=== PATIENT | female | born 1960 | race Two or more races ===

== ENCOUNTER 2016-11-02 13:27 | Emergency (ER) | payer MEDICAID, OTHER ==
[~2016-11-02] VITALS: Ht 152.4 cm; Wt 98.0 kg
[2016-11-02 15:48] VITALS: BP 145/91
== END 2016-11-02 16:14 | disposition home or self-care (01) ==
LOC: ER 13:47
DX: F20.9 Schizophrenia, unspecified (principal); F32.9 Major depressive disorder, single episode, unspecified; M19.90 Unspecified osteoarthritis, unspecified site; Z76.0 Encounter for issue of repeat prescription

== ENCOUNTER 2018-06-15 13:01 | Emergency (ER) | payer MEDICAID, OTHER ==
[~2018-06-15] VITALS: Ht 172.7 cm; Wt 96.3 kg
[2018-06-15 13:25] VITALS: BP 118/66
[2018-06-15] MEDS ORDERED: KETOROLAC TROMETH 60MG/2ML VIAL IM ONE (14:30)
== END 2018-06-15 15:22 | disposition home or self-care (01) ==
LOC: ER 13:07
DX: G89.29 Other chronic pain (principal); M54.5 Low back pain; H10.13 Acute atopic conjunctivitis, bilateral
CPT/HCPCS: 96372; 99283; J1885; J2791

== ENCOUNTER 2018-07-05 10:26 | Inpatient (IN) | payer OTHER ==
[~2018-07-05] VITALS: Ht 152.4 cm; Wt 97.6 kg
[2018-07-05 11:06] LABS: Urine Bacteria FEW /hpf (None Seen); Urine Blood Negative /uL (Negative); Urine Hyaline Cast FEW /lpf (0 - 2); Urine Mucus FEW (None Seen); Urine Specific Gravity 1.025 (1.001-1.035); Urine WBC 89 /hpf (0 - 5)
[2018-07-05] MEDS ORDERED: PANTOPRAZOLE 40 MG/10 ML VIAL IV ONE ×2 (11:15→13:15)
[2018-07-05 11:25] LABS: Basophils # (auto) 0.1 uL; Basophils % (auto) 0.7 % (0.0-2.0); Eosinophils # (auto) 0.3 uL; Eosinophils % (auto) 3.7 % (0.0-7.0); Hematocrit 41.3 % (36.0-46.0); Lymphocytes # (auto) 2.6 uL; Mean Corpuscular Hgb Conc. 33.9 g/dL (32.0-36.0); Mean Corpuscular Volume 88.7 fL (80.0-100.0); Monocytes # (auto) 0.5 uL; Monocytes % (auto) 6.8 % (0.0-12.0); Neutrophils # (auto) 4.3 uL; Neutrophils % (auto) 54.8 % (37.0-80.0); Nucleated Red Blood Cells % 0.1 %; Platelet Count (auto) 393 10^3/uL (140-450); Red Blood Cells 4.66 10^6/uL (4.0-5.20); Red Cell Distribution Width 14.3 % (11.8-14.3); White Blood Cell 7.8 10^3/uL (4.4-10.8)
[2018-07-05 11:42] LABS: Albumin 3.9 g/dL (3.4-5.0); BUN/Creatinine Ratio 17.6; Bilirubin, Total 0.2 mg/dL (0.2-1.0); Calcium 9.3 mg/dL (8.5-10.1); Potassium 3.7 mmol/L (3.5-5.1); Total Protein 8.5 g/dL (6.4-8.2)
[2018-07-05] MEDS ORDERED: SODIUM CHLORIDE 0.9% 1,000 ML IV ONE (12:44)
[2018-07-05] MEDS ORDERED: ONDANSETRON HCL 4 MG/2 ML VIAL IV ONE (12:45)
[2018-07-05] MEDS ORDERED: PIPERACILLIN-TAZOB 3.375GM 100 ML IV ONE (12:45)
[2018-07-05] MEDS ORDERED: MORPHINE SULFATE 4 MG/ML SYR/VIAL IV ONE (12:45)
[2018-07-05] MEDS ORDERED: MORPHINE SULF INJ 2 MG/ML SYRINGE 1ML IV PRN (13:15)
[2018-07-05] MEDS ORDERED: NITROGLYCERIN 0.4 MG SL TAB SL PRN (13:15)
[2018-07-05] MEDS ORDERED: PROMETHAZINE HCL 25 MG/ML 1ML IV PRN (13:15)
[2018-07-05] MEDS ORDERED: ACETAMINOPHEN 500 MG TAB PO PRN (13:15)
[2018-07-05] MEDS ORDERED: cefTRIAXone 1GM/10ml IVPUSH 10 ML IV ONE (13:15)
[2018-07-05] MEDS: SODIUM CHLORIDE 0.9% 1,000 ML IV SCH ×2 (13:23→21:10)
[2018-07-05 14:29] LABS: Amylase 52 U/L (25-115); Lipase 145 U/L (73-393)
[2018-07-05 14:36] LABS: INR 1.05 (0.9-1.15); Partial Thromboplastin Time 28.7 sec (23.78-33.04); Prothrombin Time 11.2 sec (9.27-12.13)
[2018-07-05] MEDS: metroNIDAZOLE 500MG/100ML 100 ML IV SCH (18:09)
[2018-07-05 18:19] LABS: Hematocrit 36.9 % (36.0-46.0); Hemoglobin 12.3 g/dL (12.2-16.2)
[2018-07-05] MEDS: MORPHINE SULFATE 4 MG/ML SYR/VIAL IV PRN (21:09)
[2018-07-05] MEDS: HYDROcodone-ACET 5/325MG TAB PO PRN (22:17)
[2018-07-05] MEDS: LORazepam 0.5 MG TAB PO PRN (22:17)
[2018-07-05] MEDS: TEMAZEPAM 15 MG CAP PO PRN (22:18)
[2018-07-05 23:11] VITALS: BP 111/47
[2018-07-06 00:56] LABS: Hematocrit 34.7 % (36.0-46.0); Hemoglobin 11.6 g/dL (12.2-16.2)
[2018-07-06] MEDS: metroNIDAZOLE 500MG/100ML 100 ML IV SCH ×4 (01:04→18:38)
[2018-07-06] MEDS: SODIUM CHLORIDE 0.9% 1,000 ML IV SCH ×3 (05:03→21:30)
[2018-07-06 05:44] VITALS: BP 110/67
[2018-07-06] MEDS: HYDROcodone-ACET 5/325MG TAB PO PRN (05:48)
[2018-07-06 07:01] LABS: Basophils # (auto) 0 uL; Basophils % (auto) 0.5 % (0.0-2.0); Eosinophils # (auto) 0.4 uL; Eosinophils % (auto) 4.6 % (0.0-7.0); Hematocrit 34.6 % (36.0-46.0); Hemoglobin 11.7 g/dL (12.2-16.2); Lymphocytes % (auto) 24.5 % (10.0-50.0); Mean Corpuscular Hemoglobin 30.2 pg (28.0-32.0); Mean Corpuscular Hgb Conc. 33.7 g/dL (32.0-36.0); Mean Corpuscular Volume 89.6 fL (80.0-100.0); Monocytes # (auto) 0.6 uL; Monocytes % (auto) 7.5 % (0.0-12.0); Neutrophils # (auto) 5.1 uL; Neutrophils % (auto) 62.9 % (37.0-80.0); Nucleated Red Blood Cells % 0.1 %; Platelet Count (auto) 309 10^3/uL (140-450); Red Blood Cells 3.86 10^6/uL (4.0-5.20); Red Cell Distribution Width 14.3 % (11.8-14.3)
[2018-07-06 09:00] VITALS: BP 118/51
[2018-07-06] MEDS: PANTOPRAZOLE 40 MG TAB PO SCH (10:15)
[2018-07-06] MEDS: cefTRIAXone 1GM/10ml IVPUSH 10 ML IV SCH (10:15)
[2018-07-06 13:00] VITALS: BP 107/54
[2018-07-06] MEDS: MORPHINE SULFATE 4 MG/ML SYR/VIAL IV PRN ×2 (13:40→20:45)
[2018-07-06 17:00] VITALS: BP 122/59
[2018-07-06 22:00] VITALS: BP 113/50
[2018-07-06] MEDS: TEMAZEPAM 15 MG CAP PO PRN (23:36)
[2018-07-07] MEDS: HYDROcodone-ACET 5/325MG TAB PO PRN (01:13)
[2018-07-07 05:00] VITALS: BP 156/104
[2018-07-07 05:54] VITALS: BP 107/52
[2018-07-07 08:29] VITALS: BP 150/85
[2018-07-07] MEDS: metroNIDAZOLE 500MG/100ML 100 ML IV SCH ×4 (08:55→18:06)
[2018-07-07] MEDS: SODIUM CHLORIDE 0.9% 1,000 ML IV SCH ×2 (08:56→15:26)
[2018-07-07] MEDS: cefTRIAXone 1GM/10ml IVPUSH 10 ML IV SCH (09:19)
[2018-07-07] MEDS: PANTOPRAZOLE 40 MG TAB PO SCH (09:20)
[2018-07-07] MEDS: MORPHINE SULFATE 4 MG/ML SYR/VIAL IV PRN ×2 (09:20→18:07)
[2018-07-07 10:13] LABS: Basophils # (auto) 0 uL; Basophils % (auto) 0.3 % (0.0-2.0); Eosinophils # (auto) 0.3 uL; Eosinophils % (auto) 3.2 % (0.0-7.0); Hematocrit 33.2 % (36.0-46.0); Lymphocytes # (auto) 1.9 uL; Lymphocytes % (auto) 22.7 % (10.0-50.0); Mean Corpuscular Hemoglobin 29.4 pg (28.0-32.0); Mean Corpuscular Volume 89.2 fL (80.0-100.0); Monocytes # (auto) 0.7 uL; Neutrophils # (auto) 5.4 uL; Neutrophils % (auto) 65.8 % (37.0-80.0); Nucleated Red Blood Cells % 0.1 %; Platelet Count (auto) 299 10^3/uL (140-450); Red Blood Cells 3.73 10^6/uL (4.0-5.20); Red Cell Distribution Width 14.1 % (11.8-14.3); White Blood Cell 8.2 10^3/uL (4.4-10.8)
[2018-07-07 10:20] LABS: BUN/Creatinine Ratio 9.2; Calcium 8.7 mg/dL (8.5-10.1); Magnesium 1.9 mg/dL (1.6-2.6); Potassium 3.7 mmol/L (3.5-5.1)
[2018-07-07 12:30] VITALS: BP 139/68
[2018-07-07] MEDS ORDERED: MAGNESIUM SULFATE 1GM/100ML 100 ML IV ONE (14:30)
[2018-07-07 16:18] VITALS: BP 127/61
[2018-07-07 21:58] VITALS: BP 119/58
[2018-07-08] MEDS: MORPHINE SULFATE 4 MG/ML SYR/VIAL IV PRN ×2 (00:39→06:47)
[2018-07-08] MEDS: metroNIDAZOLE 500MG/100ML 100 ML IV SCH ×4 (01:00→17:32)
[2018-07-08 06:05] VITALS: BP 121/64
[2018-07-08 06:06] VITALS: BP 128/75
[2018-07-08] MEDS: SODIUM CHLORIDE 0.9% 1,000 ML IV SCH ×2 (07:10→11:31)
[2018-07-08 07:39] LABS: Basophils # (auto) 0 uL; Basophils % (auto) 0.3 % (0.0-2.0); Eosinophils # (auto) 0.2 uL; Eosinophils % (auto) 2.8 % (0.0-7.0); Hematocrit 33.3 % (36.0-46.0); Hemoglobin 11.1 g/dL (12.2-16.2); Lymphocytes # (auto) 1.7 uL; Mean Corpuscular Hemoglobin 29.9 pg (28.0-32.0); Mean Corpuscular Hgb Conc. 33.5 g/dL (32.0-36.0); Mean Corpuscular Volume 89.3 fL (80.0-100.0); Monocytes # (auto) 0.6 uL; Monocytes % (auto) 8.3 % (0.0-12.0); Neutrophils # (auto) 4.7 uL; Neutrophils % (auto) 64.6 % (37.0-80.0); Nucleated Red Blood Cells % 0.1 %; Platelet Count (auto) 305 10^3/uL (140-450); Red Blood Cells 3.73 10^6/uL (4.0-5.20); Red Cell Distribution Width 13.9 % (11.8-14.3); White Blood Cell 7.3 10^3/uL (4.4-10.8)
[2018-07-08 08:30] VITALS: BP 148/71
[2018-07-08] MEDS: cefTRIAXone 1GM/10ml IVPUSH 10 ML IV SCH (09:01)
[2018-07-08] MEDS: PANTOPRAZOLE 40 MG TAB PO SCH (10:36)
[2018-07-08 12:59] VITALS: BP 145/58
[2018-07-08 16:54] VITALS: BP 140/72
[2018-07-08] MEDS: HYDROcodone-ACET 5/325MG TAB PO PRN (20:28)
[2018-07-08 22:00] VITALS: BP 122/58
[2018-07-08] MEDS: LORazepam 0.5 MG TAB PO PRN (22:20)
[2018-07-09 05:00] VITALS: BP 126/75
[2018-07-09] MEDS: metroNIDAZOLE 500MG/100ML 100 ML IV SCH ×3 (06:14→12:13)
[2018-07-09 08:44] VITALS: BP 132/68
[2018-07-09] MEDS: cefTRIAXone 1GM/10ml IVPUSH 10 ML IV SCH (08:58)
[2018-07-09] MEDS: HYDROcodone-ACET 5/325MG TAB PO PRN (09:13)
[2018-07-09 09:47] LABS: Hematocrit 38.2 % (36.0-46.0); Hemoglobin 12.7 g/dL (12.2-16.2)
[2018-07-09] MEDS: PANTOPRAZOLE 40 MG TAB PO SCH (10:00)
[2018-07-09 10:01] LABS: Magnesium 1.7 mg/dL (1.6-2.6); Potassium 3.5 mmol/L (3.5-5.1)
[2018-07-09] MEDS ORDERED: LEVO500T21 PO (11:45)
[2018-07-09] MEDS ORDERED: METR500T PO (11:45)
[2018-07-09] MEDS ORDERED: MAGNESIUM SULFATE 1GM/100ML 100 ML IV ONE (11:45)
[2018-07-09 13:00] VITALS: BP 136/72
[2018-07-09 14:56] VITALS: BP 144/61
[2018-07-09 17:00] VITALS: BP 117/57
== END 2018-07-09 17:38 | disposition home health service (06) | DRG 244 ==
LOC: ER 10:31 → TELE 10:32 → TELE-EAST 21:13
PROVIDERS: ADMIT Internal Medicine; ATTEND Internal Medicine
DX: K57.33 Diverticulitis of large intestine without perforation or abscess with bleeding (principal); N17.0 Acute kidney failure with tubular necrosis; E66.01 Morbid (severe) obesity due to excess calories; F17.210 Nicotine dependence, cigarettes, uncomplicated; N39.0 Urinary tract infection, site not specified; K27.9 Peptic ulcer, site unspecified, unspecified as acute or chronic, without hemorrhage or perforation; G62.9 Polyneuropathy, unspecified; G89.4 Chronic pain syndrome; I70.8 Atherosclerosis of other arteries; Z83.3 Family history of diabetes mellitus; Z87.11 Personal history of peptic ulcer disease; Z90.721 Acquired absence of ovaries, unilateral; Z68.41 Body mass index [BMI] 40.0-44.9, adult; Z90.49 Acquired absence of other specified parts of digestive tract
CPT/HCPCS: 36415; 74176; 80048; 80053; 81001; 82150; 82270; 82378; 83605; 83690; 83735; 84132; 85014; 85018; 85025; 85045; 85610; 85652; 85730; 87040; 87081; 87086; 87493; 96361; 96365; 96375; A6257; C9113; J0696; J2405; J2543; J3490

== ENCOUNTER 2018-09-17 09:09 | Emergency (ER) | payer OTHER ==
[~2018-09-17] VITALS: Ht 152.4 cm; Wt 95.3 kg
[~2018-09-17 09:09] MED LIST: LEVO500T21 PO; METR500T PO
[2018-09-17] MEDS ORDERED: IPRATROPIUM BROM 0.5 MG/2.5ML INH SOL NEB ONE (09:45)
[2018-09-17] MEDS ORDERED: ALBUTEROL SULF 2.5 MG/0.5ML(0.5%) NEB SOLN NEB ONE (09:45)
[2018-09-17 09:53] LABS: Urine Bacteria NONE SEEN /hpf (None Seen); Urine Blood Negative /uL (Negative); Urine Specific Gravity 1.014 (1.001-1.035); Urine WBC 21 /hpf (0 - 5)
[2018-09-17] MEDS: methylPREDNISolone SOD SUCC 125 MG/2 ML VL IV ONE ×2 (09:53→09:56)
[2018-09-17 10:30] LABS: Basophils # (auto) 0 uL; Basophils % (auto) 0.6 % (0.0-2.0); Eosinophils # (auto) 0.3 uL; Eosinophils % (auto) 4.4 % (0.0-7.0); Hematocrit 41.8 % (36.0-46.0); Lymphocytes # (auto) 1.3 uL; Lymphocytes % (auto) 17.4 % (10.0-50.0); Mean Corpuscular Hemoglobin 29.9 pg (28.0-32.0); Mean Corpuscular Hgb Conc. 33.4 g/dL (32.0-36.0); Mean Corpuscular Volume 89.5 fL (80.0-100.0); Monocytes # (auto) 0.6 uL; Monocytes % (auto) 7.9 % (0.0-12.0); Neutrophils # (auto) 5.3 uL; Neutrophils % (auto) 69.7 % (37.0-80.0); Platelet Count (auto) 373 10^3/uL (140-450); Red Blood Cells 4.67 10^6/uL (4.0-5.20); Red Cell Distribution Width 14.2 % (11.8-14.3); White Blood Cell 7.6 10^3/uL (4.4-10.8)
[2018-09-17 10:40] LABS: Chloride 104 mmol/L (98-107); Potassium 3.8 mmol/L (3.5-5.1); Sodium 139 mmol/L (136-145)
[2018-09-17 10:50] LABS: Alanine Aminotransferase 33 U/L (13-56); Albumin 3.9 g/dL (3.4-5.0); Alkaline Phosphatase 69 U/L (45-117); Anion Gap 6 (5-15); Aspartate Aminotransferase 19 U/L (15-37); BUN/Creatinine Ratio 13.1; Bilirubin, Total 0.3 mg/dL (0.2-1.0); Blood Urea Nitrogen 11 mg/dL (7-18); Calcium 9.1 mg/dL (8.5-10.1); Carbon Dioxide 29 mmol/L (21-32); GFR African American 89 mL/min; GFR Non-African American 74 mL/min; Glucose 125 mg/dL (74-106)
[2018-09-17 11:46] LABS: INR 1.04 (0.9-1.15); Partial Thromboplastin Time 28.2 sec (23.78-33.04); Prothrombin Time 11.1 sec (9.27-12.13)
[2018-09-17 12:16] VITALS: BP 139/65
== END 2018-09-17 12:20 | disposition home or self-care (01) ==
LOC: ER 09:09
DX: J45.909 Unspecified asthma, uncomplicated (principal); N39.0 Urinary tract infection, site not specified; I10 Essential (primary) hypertension; M19.90 Unspecified osteoarthritis, unspecified site; G62.9 Polyneuropathy, unspecified; F17.210 Nicotine dependence, cigarettes, uncomplicated; Z90.89 Acquired absence of other organs
CPT/HCPCS: 36415; 71045; 80053; 81001; 83605; 83880; 84484; 85025; 85610; 85730; 94640; 96374; 99284; J2930; J7030; J7611; J7644

== ENCOUNTER 2019-01-04 17:24 | Inpatient (IN) | payer OTHER ==
[~2019-01-04] VITALS: Ht 152.4 cm; Wt 93.9 kg
[2019-01-04 18:25] LABS: Alanine Aminotransferase 46 U/L (13-56); Albumin 4.1 g/dL (3.4-5.0); Anion Gap 5 (5-15); Aspartate Aminotransferase 31 U/L (15-37); BUN/Creatinine Ratio 14.4; Blood Urea Nitrogen 17 mg/dL (7-18); Calcium 9.4 mg/dL (8.5-10.1); Carbon Dioxide 27 mmol/L (21-32); Chloride 102 mmol/L (98-107); GFR African American 60 mL/min; GFR Non-African American 50 mL/min; Glucose 143 mg/dL (74-106); Potassium 4.3 mmol/L (3.5-5.1); Sodium 134 mmol/L (136-145)
[2019-01-04 18:26] LABS: Amphetamine Screen, Urine NEGATIVE (NEGATIVE); Barbiturate Scree,Urine NEGATIVE (NEGATIVE); Benzodiazephine Screen, Urine NEGATIVE (NEGATIVE); Cannabinoid Screen, Urine NEGATIVE (NEGATIVE); Cocaine Screen, Urine NEGATIVE (NEGATIVE); Opiate Scree,Urine POSITIVE (NEGATIVE); Phencyclidine Screen, Urine NEGATIVE (NEGATIVE)
[2019-01-04 18:30] LABS: Alkaline Phosphatase 65 U/L (45-117); Bilirubin, Total 0.3 mg/dL (0.2-1.0); Total Protein 8.7 g/dL (6.4-8.2)
[2019-01-04 18:44] LABS: Urine Bacteria FEW /hpf (None Seen); Urine Blood Negative /uL (Negative); Urine Mucus FEW (None Seen); Urine Specific Gravity 1.024 (1.001-1.035); Urine WBC 15 /hpf (0 - 5)
[2019-01-04 18:48] LABS: Basophils # (auto) 0 uL; Basophils % (auto) 0.2 % (0.0-2.0); Eosinophils # (auto) 0 uL; Eosinophils % (auto) 0.3 % (0.0-7.0); Lymphocytes # (auto) 1.7 uL; Lymphocytes % (auto) 13.5 % (10.0-50.0); Mean Corpuscular Hemoglobin 29.6 pg (28.0-32.0); Mean Corpuscular Hgb Conc. 33.3 g/dL (32.0-36.0); Mean Corpuscular Volume 88.8 fL (80.0-100.0); Monocytes # (auto) 0.7 uL; Monocytes % (auto) 5.2 % (0.0-12.0); Neutrophils # (auto) 10.2 uL; Neutrophils % (auto) 80.8 % (37.0-80.0); Nucleated Red Blood Cells % 0.1 %; Platelet Count (auto) 395 10^3/uL (140-450); Red Cell Distribution Width 14.6 % (11.8-14.3); White Blood Cell 12.6 10^3/uL (4.4-10.8)
[2019-01-05] MEDS ORDERED: metroNIDAZOLE 500MG/100ML 100 ML IV ONE (01:00)
[2019-01-05] MEDS ORDERED: SODIUM CHLORIDE 0.9% 1,000 ML IV ONE (01:00)
[2019-01-05] MEDS ORDERED: cefTRIAXone 1GM/50ML D5W 50 ML IV ONE (01:00)
[2019-01-05] MEDS ORDERED: MORPHINE SULFATE 4 MG/ML SYR/VIAL IV ONE (01:00)
[2019-01-05] MEDS ORDERED: MORPHINE SULF INJ 2 MG/ML SYRINGE 1ML IV ONE (04:00)
[2019-01-05] MEDS ORDERED: HYDROcodone-ACET 5/325MG TAB PO PRN (05:00)
[2019-01-05] MEDS ORDERED: ONDANSETRON HCL 4 MG/2 ML VIAL IV PRN (05:00)
[2019-01-05] MEDS ORDERED: ACETAMINOPHEN 325 MG TAB PO PRN (05:00)
[2019-01-05] MEDS ORDERED: TEMAZEPAM 15 MG CAP PO PRN ×2 (05:00→21:00)
[2019-01-05] MEDS: SODIUM CHLORIDE 0.9% 1,000 ML IV SCH ×2 (06:25→13:53)
[2019-01-05] MEDS: MORPHINE SULFATE 4 MG/ML SYR/VIAL IV PRN ×3 (07:27→21:16)
[2019-01-05] MEDS: metroNIDAZOLE 500MG/100ML 100 ML IV SCH ×3 (08:00→22:05)
[2019-01-05 09:13] LABS: Hematocrit 43.1 % (36.0-46.0); Hemoglobin 14.3 g/dL (12.2-16.2)
[2019-01-05] MEDS: cefTRIAXone 1GM/50ML D5W 50 ML IV SCH (09:17)
[2019-01-05] MEDS: BENAZEPRIL HCL 10 MG TAB PO SCH (10:21)
[2019-01-05] MEDS: PANTOPRAZOLE 40 MG/10 ML VIAL IV SCH (10:21)
[2019-01-05] MEDS: HCTZ 25 MG TAB PO SCH (10:21)
[2019-01-05 12:56] VITALS: BP 105/63
[2019-01-05 14:50] VITALS: BP 105/63
[2019-01-05] MEDS ORDERED: BENA20TA70 PO (15:47)
[2019-01-05] MEDS ORDERED: ARIP1TAB7 PO (15:47)
[2019-01-05] MEDS ORDERED: TRAZ150T79 PO (15:47)
[2019-01-05] MEDS ORDERED: PAR20T PO (15:47)
[2019-01-05] MEDS ORDERED: ALBUAER3 IN (15:47)
[2019-01-05] MEDS ORDERED: TRAM50TA2 PO (15:47)
[2019-01-05] MEDS ORDERED: GABA-339 PO (15:47)
[2019-01-05] MEDS ORDERED: [UNRECOGNIZED DRUG - CODE] SL ×2 (15:47)
[2019-01-05] MEDS ORDERED: PRA1C PO (15:47)
[2019-01-05] MEDS ORDERED: SIMV-8 PO (15:47)
[2019-01-05 16:52] VITALS: BP 96/55
[2019-01-05 21:41] VITALS: BP 109/60
[2019-01-05] MEDS: traZODone HCL 50 MG TAB PO SCH (22:05)
[2019-01-05] MEDS: ATORVASTATIN 20 MG TAB PO SCH (22:05)
[2019-01-06] MEDS: SODIUM CHLORIDE 0.9% 1,000 ML IV SCH (04:30)
[2019-01-06 05:26] VITALS: BP 98/55
[2019-01-06 05:48] LABS: Basophils # (auto) 0 uL; Basophils % (auto) 0.3 % (0.0-2.0); Eosinophils # (auto) 0.1 uL; Eosinophils % (auto) 1.2 % (0.0-7.0); Hematocrit 38.8 % (36.0-46.0); Hemoglobin 12.9 g/dL (12.2-16.2); Lymphocytes # (auto) 2.2 uL; Mean Corpuscular Hemoglobin 29.7 pg (28.0-32.0); Mean Corpuscular Hgb Conc. 33.2 g/dL (32.0-36.0); Mean Corpuscular Volume 89.4 fL (80.0-100.0); Monocytes # (auto) 0.8 uL; Monocytes % (auto) 6.5 % (0.0-12.0); Neutrophils # (auto) 8.4 uL; Platelet Count (auto) 286 10^3/uL (140-450); Red Blood Cells 4.34 10^6/uL (4.0-5.20); Red Cell Distribution Width 14.7 % (11.8-14.3); White Blood Cell 11.5 10^3/uL (4.4-10.8)
[2019-01-06] MEDS: metroNIDAZOLE 500MG/100ML 100 ML IV SCH ×4 (05:58→22:00)
[2019-01-06 06:07] LABS: Potassium 3.9 mmol/L (3.5-5.1)
[2019-01-06 06:16] LABS: Albumin 3.2 g/dL (3.4-5.0); BUN/Creatinine Ratio 14.3; Bilirubin, Total 0.4 mg/dL (0.2-1.0); Calcium 8.2 mg/dL (8.5-10.1); Total Protein 6.6 g/dL (6.4-8.2)
[2019-01-06] MEDS: MORPHINE SULFATE 4 MG/ML SYR/VIAL IV PRN ×2 (08:18→21:45)
[2019-01-06 09:50] VITALS: BP 150/89
[2019-01-06] MEDS: PANTOPRAZOLE 40 MG/10 ML VIAL IV SCH (09:50)
[2019-01-06] MEDS: cefTRIAXone 1GM/50ML D5W 50 ML IV SCH (09:50)
[2019-01-06] MEDS: HCTZ 25 MG TAB PO SCH (09:51)
[2019-01-06] MEDS: BENAZEPRIL HCL 10 MG TAB PO SCH (09:51)
[2019-01-06 13:00] VITALS: BP 120/57
[2019-01-06 17:30] VITALS: BP 91/52
[2019-01-06] MEDS: traZODone HCL 50 MG TAB PO SCH (21:44)
[2019-01-06] MEDS: ATORVASTATIN 20 MG TAB PO SCH (21:44)
[2019-01-06 21:56] VITALS: BP 101/51
[2019-01-07] MEDS: SODIUM CHLORIDE 0.9% 1,000 ML IV SCH ×2 (04:04→15:50)
[2019-01-07 05:11] VITALS: BP 117/61
[2019-01-07] MEDS: metroNIDAZOLE 500MG/100ML 100 ML IV SCH ×3 (06:10→22:25)
[2019-01-07] MEDS: cefTRIAXone 1GM/50ML D5W 50 ML IV SCH (09:33)
[2019-01-07 09:34] VITALS: BP 100/62
[2019-01-07] MEDS: BENAZEPRIL HCL 10 MG TAB PO SCH (09:34)
[2019-01-07] MEDS: HCTZ 25 MG TAB PO SCH (09:34)
[2019-01-07] MEDS: PANTOPRAZOLE 40 MG/10 ML VIAL IV SCH (09:59)
[2019-01-07 13:00] VITALS: BP 107/53
[2019-01-07] MEDS: MORPHINE SULFATE 4 MG/ML SYR/VIAL IV PRN (14:24)
[2019-01-07 17:10] VITALS: BP 102/63
[2019-01-07] MEDS: ATORVASTATIN 20 MG TAB PO SCH (21:53)
[2019-01-07] MEDS: DOCUSATE SOD 100 MG CAP PO SCH (21:55)
[2019-01-07 22:00] VITALS: BP 112/60
[2019-01-07] MEDS: traZODone HCL 50 MG TAB PO SCH (22:25)
[2019-01-08] MEDS: SODIUM CHLORIDE 0.9% 1,000 ML IV SCH (04:02)
[2019-01-08 04:56] VITALS: BP 125/53
[2019-01-08] MEDS: metroNIDAZOLE 500MG/100ML 100 ML IV SCH ×2 (06:57→14:00)
[2019-01-08 08:30] VITALS: BP 121/68
[2019-01-08] MEDS: DOCUSATE SOD 100 MG CAP PO SCH (10:08)
[2019-01-08] MEDS: PANTOPRAZOLE 40 MG/10 ML VIAL IV SCH (10:08)
[2019-01-08] MEDS: cefTRIAXone 1GM/50ML D5W 50 ML IV SCH (10:08)
[2019-01-08] MEDS: HCTZ 25 MG TAB PO SCH (10:09)
[2019-01-08] MEDS: BENAZEPRIL HCL 10 MG TAB PO SCH (10:09)
[2019-01-08 12:30] VITALS: BP 124/81
[2019-01-08 14:20] VITALS: BP 124/81
== END 2019-01-08 14:00 | disposition home or self-care (01) | DRG 244 ==
LOC: ER 17:28 → OVERFLOW 01-05 05:30 → WEST WING 01-05 11:59
PROVIDERS: ADMIT Nurse Practitioner; ATTEND Internal Medicine
DX: K57.32 Diverticulitis of large intestine without perforation or abscess without bleeding (principal); E66.01 Morbid (severe) obesity due to excess calories; F20.9 Schizophrenia, unspecified; Z68.41 Body mass index [BMI] 40.0-44.9, adult; I10 Essential (primary) hypertension; K52.9 Noninfective gastroenteritis and colitis, unspecified; N39.0 Urinary tract infection, site not specified; E78.5 Hyperlipidemia, unspecified; F17.210 Nicotine dependence, cigarettes, uncomplicated; J45.909 Unspecified asthma, uncomplicated; M19.90 Unspecified osteoarthritis, unspecified site; Z90.49 Acquired absence of other specified parts of digestive tract; Z79.899 Other long term (current) drug therapy; Z87.11 Personal history of peptic ulcer disease; Z83.2 Family history of diseases of the blood and blood-forming organs and certain disorders involving the immune mechanism
CPT/HCPCS: 36415; 74176; 80053; 80307; 81001; 84484; 85014; 85018; 85025; 85652; 86141; 93005; 96361; 96365; 96367; 96375; C9113; G0378; J0696; J2405; J3490

== ENCOUNTER 2019-03-04 13:51 | Emergency (ER) | payer OTHER ==
[~2019-03-04] VITALS: Ht 152.4 cm; Wt 95.3 kg
[~2019-03-04 13:51] MED LIST changes: +ALBUAER3 IN; +ARIP1TAB7 PO; +BENA20TA70 PO; +GABA-339 PO; +PAR20T PO; +PRA1C PO; +SIMV-8 PO; +TRAM50TA2 PO; +TRAZ150T79 PO; +[UNRECOGNIZED DRUG - CODE] SL
[2019-03-04 14:32] VITALS: BP 146/77
== END 2019-03-04 16:15 | disposition home or self-care (01) ==
LOC: ER 13:51
DX: J02.9 Acute pharyngitis, unspecified (principal); M19.90 Unspecified osteoarthritis, unspecified site; J45.909 Unspecified asthma, uncomplicated; E11.9 Type 2 diabetes mellitus without complications; E78.5 Hyperlipidemia, unspecified; I10 Essential (primary) hypertension; F17.210 Nicotine dependence, cigarettes, uncomplicated; Z90.49 Acquired absence of other specified parts of digestive tract
CPT/HCPCS: 71046

== ENCOUNTER 2021-03-05 09:25 | Inpatient (IN) | payer OTHER ==
[~2021-03-05] VITALS: Ht 152.4 cm; Wt 99.3 kg
[~2021-03-05 09:25] MED LIST changes: -LEVO500T21 PO; +LEVO500T31 PO; -TRAZ150T79 PO; +TRAZ1TAB12 PO
[2021-03-05 10:05] LABS: Basophils # (auto) 0 10 ^3/uL (0-0.2); Basophils % (auto) 0.6 % (0.0-2.0); Calcium 9.1 mg/dL (8.5-10.1); Eosinophils # (auto) 0.3 10 ^3/uL (0-0.8); Eosinophils % (auto) 3.1 % (0.0-7.0); Hematocrit 40.5 % (36.0-46.0); Hemoglobin 13.5 g/dL (12.2-16.2); Lymphocytes # (auto) 2.9 10 ^3/uL (0.4-5.4); Lymphocytes % (auto) 35.7 % (10.0-50.0); Mean Corpuscular Hemoglobin 29.8 pg (28.0-32.0); Mean Corpuscular Hgb Conc. 33.2 g/dL (32.0-36.0); Mean Corpuscular Volume 89.9 fL (80.0-100.0); Monocytes # (auto) 0.6 10 ^3/uL (0-1.3); Monocytes % (auto) 7.9 % (0.0-12.0); Neutrophils # (auto) 4.3 10 ^3/uL (1.6-8.6); Neutrophils % (auto) 52.7 % (37.0-80.0); Nucleated Red Blood Cells % 0.1 %; Platelet Count (auto) 346 10^3/uL (140-450); Red Blood Cells 4.51 10^6/uL (4.0-5.20); White Blood Cell 8.1 10^3/uL (4.4-10.8)
[2021-03-05 10:08] LABS: BUN/Creatinine Ratio 20.5; Bilirubin, Total 0.2 mg/dL (0.2-1.0); Total Protein 7.8 g/dL (6.4-8.2)
[2021-03-05] MEDS ORDERED: SODIUM CHLORIDE 0.9% 1,000 ML IV ONE (11:15)
[2021-03-05] MEDS ORDERED: HYDROmorphone HCL 2 MG/ML VL IV ONE (11:15)
[2021-03-05] MEDS ORDERED: SODIUM CHLORIDE 0.9% 500 ML IVB ONE (11:15)
[2021-03-05] MEDS ORDERED: PROMETHAZINE HCL 25 MG/ML 1ML IV PRN (11:15)
[2021-03-05] MEDS ORDERED: IOHEXOL 300 MG/ML 100ML BOTTLE IJ ONE (11:24)
[2021-03-05 11:35] LABS: Magnesium 2.7 mg/dL (1.6-2.6)
[2021-03-05 11:47] LABS: INR 1.06 (0.9-1.15); Partial Thromboplastin Time 28.3 sec (23.0-31.2)
[2021-03-05 12:38] LABS: Urine Bacteria NONE SEEN /hpf (None Seen); Urine Blood TRACE /uL (Negative); Urine Specific Gravity 1.037 (1.001-1.035); Urine WBC 124 /hpf (0 - 5)
[2021-03-05] MEDS ORDERED: cefTRIAXone 1GM/50ML D5W 50 ML IV ONE (13:15)
[2021-03-05] MEDS ORDERED: metroNIDAZOLE 500MG/100ML 100 ML IV ONE (13:15)
[2021-03-05] MEDS ORDERED: NITROGLYCERIN 0.4 MG SL TAB SL PRN (15:00)
[2021-03-05] MEDS ORDERED: MORPHINE SULF INJ 2 MG/ML SYRINGE 1ML IV PRN (15:00)
[2021-03-05] MEDS ORDERED: ONDANSETRON HCL 4 MG/2 ML VIAL IV PRN (15:00)
[2021-03-05] MEDS ORDERED: LORazepam 0.5 MG TAB PO PRN (15:00)
[2021-03-05] MEDS ORDERED: hydrALAZINE HCL 20 MG/ML VL IV PRN (15:00)
[2021-03-05] MEDS ORDERED: DOCUSATE CALCIUM 240 MG CAP PO PRN (15:00)
[2021-03-05] MEDS ORDERED: SODIUM CHLORIDE 0.9% 2,000 ML IV ONE (15:00)
[2021-03-05 15:11] VITALS: BP 114/58
[2021-03-05] MEDS ORDERED: DONE1TAB88 PO (16:47)
[2021-03-05] MEDS ORDERED: HYDR-4072 PO (16:47)
[2021-03-05] MEDS ORDERED: DOCU-94 PO (16:47)
[2021-03-05] MEDS ORDERED: HYDR50CA2 PO (16:47)
[2021-03-05] MEDS ORDERED: ARIP1TAB7 PO (16:47)
[2021-03-05] MEDS ORDERED: PANT40T PO (16:47)
[2021-03-05 16:48] VITALS: BP 129/63
[2021-03-05] MEDS: ASENAPINE MALEATE SL SCH (18:00)
[2021-03-05] MEDS: ALBUTEROL SULF 2.5 MG/0.5ML(0.5%) NEB SOLN NEB PRN (18:55)
[2021-03-05] MEDS: MORPHINE SULFATE 4 MG/ML SYR/VIAL IV PRN ×2 (19:55→23:02)
[2021-03-05 22:00] VITALS: BP 125/70
[2021-03-05] MEDS: PARoxetine 20 MG TAB PO SCH (22:00)
[2021-03-05] MEDS: metroNIDAZOLE 500MG/100ML 100 ML IV SCH (22:00)
[2021-03-06 05:00] VITALS: BP 102/46
[2021-03-06] MEDS: metroNIDAZOLE 500MG/100ML 100 ML IV SCH ×3 (06:00→22:12)
[2021-03-06] MEDS: MORPHINE SULFATE 4 MG/ML SYR/VIAL IV PRN ×3 (06:28→20:21)
[2021-03-06] MEDS: ACETAMINOPHEN 500 MG TAB PO PRN ×2 (06:29→20:29)
[2021-03-06 09:00] VITALS: BP 120/71
[2021-03-06] MEDS ORDERED: cefTRIAXone 1GM/50ML D5W 50 ML IV SCH (09:00)
[2021-03-06] MEDS: PANTOPRAZOLE 40 MG TAB PO SCH (09:29)
[2021-03-06] MEDS: levoFLOXacin 500MG 100 ML IV SCH (09:29)
[2021-03-06] MEDS: PARoxetine 20 MG TAB PO SCH ×2 (09:52→22:00)
[2021-03-06] MEDS ORDERED: ENOXAPARIN SOD 40 MG/0.4 ML SYRINGE SC SCH (10:00)
[2021-03-06 10:12] LABS: INR 1.16 (0.9-1.15)
[2021-03-06 10:28] LABS: Albumin 3.2 g/dL (3.4-5.0); Calcium 8.4 mg/dL (8.5-10.1); Potassium 3.8 mmol/L (3.5-5.1)
[2021-03-06 10:32] LABS: BUN/Creatinine Ratio 16.7; Bilirubin, Total 0.2 mg/dL (0.2-1.0); Total Protein 6.4 g/dL (6.4-8.2)
[2021-03-06 11:13] LABS: Basophils # (auto) 0.1 10 ^3/uL (0-0.2); Basophils % (auto) 0.9 % (0.0-2.0); Eosinophils # (auto) 0.2 10 ^3/uL (0-0.8); Hematocrit 36.1 % (36.0-46.0); Hemoglobin 11.9 g/dL (12.2-16.2); Lymphocytes % (auto) 33.1 % (10.0-50.0); Mean Corpuscular Hgb Conc. 33.1 g/dL (32.0-36.0); Mean Corpuscular Volume 90.6 fL (80.0-100.0); Monocytes # (auto) 0.5 10 ^3/uL (0-1.3); Monocytes % (auto) 7.8 % (0.0-12.0); Neutrophils # (auto) 3.3 10 ^3/uL (1.6-8.6); Neutrophils % (auto) 54.2 % (37.0-80.0); Nucleated Red Blood Cells % 0.1 %; Platelet Count (auto) 282 10^3/uL (140-450); Red Blood Cells 3.98 10^6/uL (4.0-5.20); Red Cell Distribution Width 14.7 % (11.8-14.3); White Blood Cell 6.2 10^3/uL (4.4-10.8)
[2021-03-06 13:00] VITALS: BP 115/62
[2021-03-06] MEDS: LORazepam 0.5 MG TAB PO PRN ×2 (13:10→22:12)
[2021-03-06 16:41] VITALS: BP 112/67
[2021-03-06] MEDS: ASENAPINE MALEATE SL SCH (18:00)
[2021-03-06] MEDS: SUCRALFATE 1 GM/10 ML ORAL SUSP PO SCH ×2 (18:03→22:11)
[2021-03-06] MEDS: ENSURE CLEAR Mixed Berry 8oz Carton PO SCH (18:03)
[2021-03-06 20:00] VITALS: BP 107/66
[2021-03-06 22:00] VITALS: BP 107/66
[2021-03-07 05:00] VITALS: BP 130/71
[2021-03-07 05:14] LABS: Basophils # (auto) 0 10 ^3/uL (0-0.2); Basophils % (auto) 0.4 % (0.0-2.0); Eosinophils # (auto) 0.3 10 ^3/uL (0-0.8); Hematocrit 35.8 % (36.0-46.0); Lymphocytes # (auto) 1.8 10 ^3/uL (0.4-5.4); Lymphocytes % (auto) 32.5 % (10.0-50.0); Mean Corpuscular Hemoglobin 30.3 pg (28.0-32.0); Mean Corpuscular Hgb Conc. 33.7 g/dL (32.0-36.0); Mean Corpuscular Volume 89.9 fL (80.0-100.0); Monocytes # (auto) 0.4 10 ^3/uL (0-1.3); Monocytes % (auto) 7.7 % (0.0-12.0); Neutrophils # (auto) 3.1 10 ^3/uL (1.6-8.6); Neutrophils % (auto) 54.4 % (37.0-80.0); Nucleated Red Blood Cells % 0.1 %; Platelet Count (auto) 261 10^3/uL (140-450); Red Blood Cells 3.98 10^6/uL (4.0-5.20); Red Cell Distribution Width 14.3 % (11.8-14.3); White Blood Cell 5.6 10^3/uL (4.4-10.8)
[2021-03-07 05:31] LABS: Calcium 8.6 mg/dL (8.5-10.1); Potassium 3.8 mmol/L (3.5-5.1)
[2021-03-07 05:37] LABS: Albumin 3.3 g/dL (3.4-5.0); BUN/Creatinine Ratio 10.9; Bilirubin, Total 0.3 mg/dL (0.2-1.0); Total Protein 6.6 g/dL (6.4-8.2)
[2021-03-07] MEDS: MORPHINE SULFATE 4 MG/ML SYR/VIAL IV PRN (05:52)
[2021-03-07] MEDS: metroNIDAZOLE 500MG/100ML 100 ML IV SCH ×3 (05:52→21:53)
[2021-03-07] MEDS: ACETAMINOPHEN 500 MG TAB PO PRN (06:04)
[2021-03-07] MEDS: SUCRALFATE 1 GM/10 ML ORAL SUSP PO SCH ×4 (06:45→21:54)
[2021-03-07 09:00] VITALS: BP 134/67
[2021-03-07] MEDS: ENSURE CLEAR Mixed Berry 8oz Carton PO SCH ×3 (09:03→18:23)
[2021-03-07] MEDS: PARoxetine 20 MG TAB PO SCH ×2 (09:04→21:59)
[2021-03-07] MEDS: levoFLOXacin 500MG 100 ML IV SCH (09:04)
[2021-03-07] MEDS: PANTOPRAZOLE 40 MG TAB PO SCH (09:04)
[2021-03-07 12:30] VITALS: BP 140/81
[2021-03-07] MEDS: ALBUTEROL SULF 2.5 MG/0.5ML(0.5%) NEB SOLN NEB PRN (15:42)
[2021-03-07] MEDS ORDERED: PHYTONADIONE(VitK) ORAL Susp 10mg/10ml(1mg/ml) PO ONE (15:45)
[2021-03-07 17:00] VITALS: BP 122/58
[2021-03-07] MEDS: ASENAPINE MALEATE SL SCH (18:00)
[2021-03-07 20:00] VITALS: BP 138/74
[2021-03-07 21:35] VITALS: BP 138/74
[2021-03-08 03:15] VITALS: BP 138/74
[2021-03-08 05:00] VITALS: BP 124/69
[2021-03-08] MEDS: SUCRALFATE 1 GM/10 ML ORAL SUSP PO SCH ×4 (05:44→21:30)
[2021-03-08] MEDS: metroNIDAZOLE 500MG/100ML 100 ML IV SCH ×3 (05:44→21:30)
[2021-03-08] MEDS: MORPHINE SULFATE 4 MG/ML SYR/VIAL IV PRN (05:53)
[2021-03-08 06:03] LABS: Basophils # (auto) 0 10 ^3/uL (0-0.2); Basophils % (auto) 0.5 % (0.0-2.0); Eosinophils # (auto) 0.3 10 ^3/uL (0-0.8); Eosinophils % (auto) 4.5 % (0.0-7.0); Hematocrit 35.8 % (36.0-46.0); Hemoglobin 12.8 g/dL (12.2-16.2); Lymphocytes # (auto) 1.7 10 ^3/uL (0.4-5.4); Lymphocytes % (auto) 27.3 % (10.0-50.0); Mean Corpuscular Hemoglobin 31.7 pg (28.0-32.0); Mean Corpuscular Hgb Conc. 35.7 g/dL (32.0-36.0); Monocytes # (auto) 0.6 10 ^3/uL (0-1.3); Monocytes % (auto) 9.2 % (0.0-12.0); Neutrophils # (auto) 3.6 10 ^3/uL (1.6-8.6); Neutrophils % (auto) 58.5 % (37.0-80.0); Nucleated Red Blood Cells % 0.1 %; Platelet Count (auto) 260 10^3/uL (140-450); Red Blood Cells 4.03 10^6/uL (4.0-5.20); Red Cell Distribution Width 14.5 % (11.8-14.3); White Blood Cell 6.2 10^3/uL (4.4-10.8)
[2021-03-08 06:17] LABS: INR 1.2 (0.9-1.15)
[2021-03-08 06:21] LABS: Potassium 3.5 mmol/L (3.5-5.1)
[2021-03-08 06:36] LABS: Albumin 3.4 g/dL (3.4-5.0); Bilirubin, Total 0.4 mg/dL (0.2-1.0); Calcium 8.7 mg/dL (8.5-10.1); Total Protein 6.8 g/dL (6.4-8.2)
[2021-03-08] MEDS: ENSURE CLEAR Mixed Berry 8oz Carton PO SCH ×3 (08:00→18:00)
[2021-03-08 09:00] VITALS: BP 134/52
[2021-03-08] MEDS: PARoxetine 20 MG TAB PO SCH ×2 (10:00→21:31)
[2021-03-08] MEDS: levoFLOXacin 500MG 100 ML IV SCH (10:55)
[2021-03-08] MEDS: PANTOPRAZOLE 40 MG TAB PO SCH (11:00)
[2021-03-08 12:51] VITALS: BP 154/68
[2021-03-08] MEDS ORDERED: ARIP1TAB7 PO (13:28)
[2021-03-08 16:50] VITALS: BP 135/63
[2021-03-08] MEDS: ASENAPINE MALEATE SL SCH (18:00)
[2021-03-08] MEDS ORDERED: fentaNYL CITRATE 100 MCG/2 ML VL ONE (19:22)
[2021-03-08] MEDS ORDERED: MIDAZOLAM HCL 1MG/1ML-2 ML VIAL ONE (19:22)
[2021-03-08] MEDS ORDERED: LIDOCAINE 1% (LOCAL ANESTH.) PF 5ml SDV ONE (19:23)
[2021-03-08] MEDS ORDERED: PROPOFOL 10 MG/ML 20 ML IV ONE (19:24)
[2021-03-08] MEDS ORDERED: ONDANSETRON HCL 4 MG/2 ML VIAL IV PRN (19:45)
[2021-03-08 22:00] VITALS: BP 141/70
[2021-03-09 04:55] LABS: Basophils # (auto) 0 10 ^3/uL (0-0.2); Basophils % (auto) 0.6 % (0.0-2.0); Eosinophils # (auto) 0.3 10 ^3/uL (0-0.8); Eosinophils % (auto) 4.6 % (0.0-7.0); Hematocrit 36.2 % (36.0-46.0); Hemoglobin 12.4 g/dL (12.2-16.2); Lymphocytes # (auto) 1.7 10 ^3/uL (0.4-5.4); Mean Corpuscular Hemoglobin 30.6 pg (28.0-32.0); Mean Corpuscular Hgb Conc. 34.4 g/dL (32.0-36.0); Mean Corpuscular Volume 89.1 fL (80.0-100.0); Monocytes # (auto) 0.6 10 ^3/uL (0-1.3); Monocytes % (auto) 8.5 % (0.0-12.0); Neutrophils # (auto) 4.1 10 ^3/uL (1.6-8.6); Neutrophils % (auto) 61.3 % (37.0-80.0); Platelet Count (auto) 253 10^3/uL (140-450); Red Blood Cells 4.06 10^6/uL (4.0-5.20); Red Cell Distribution Width 14.4 % (11.8-14.3); White Blood Cell 6.7 10^3/uL (4.4-10.8)
[2021-03-09 05:00] VITALS: BP 116/61
[2021-03-09 05:16] LABS: BUN/Creatinine Ratio 13.9; Calcium 8.4 mg/dL (8.5-10.1); Potassium 3.6 mmol/L (3.5-5.1)
[2021-03-09] MEDS: metroNIDAZOLE 500MG/100ML 100 ML IV SCH ×3 (05:30→22:29)
[2021-03-09] MEDS: SUCRALFATE 1 GM/10 ML ORAL SUSP PO SCH ×5 (05:30→22:29)
[2021-03-09] MEDS: MORPHINE SULFATE 4 MG/ML SYR/VIAL IV PRN (05:31)
[2021-03-09] MEDS: ENSURE CLEAR Mixed Berry 8oz Carton PO SCH ×3 (08:00→17:27)
[2021-03-09 09:00] VITALS: BP 124/76
[2021-03-09] MEDS: PANTOPRAZOLE 40 MG TAB PO SCH (09:47)
[2021-03-09] MEDS: levoFLOXacin 500MG 100 ML IV SCH (09:47)
[2021-03-09] MEDS: PARoxetine 20 MG TAB PO SCH ×2 (09:47→22:30)
[2021-03-09] MEDS: ACETAMINOPHEN 500 MG TAB PO PRN ×2 (11:42→22:38)
[2021-03-09 13:15] VITALS: BP 131/78
[2021-03-09 16:41] VITALS: BP 128/70
[2021-03-09] MEDS: ASENAPINE MALEATE SL SCH (17:25)
[2021-03-09] MEDS: MORPHINE SULF INJ 2 MG/ML SYRINGE 1ML IV PRN (19:08)
[2021-03-09] MEDS: ALBUTEROL SULF 2.5 MG/0.5ML(0.5%) NEB SOLN NEB PRN (20:34)
[2021-03-09 22:00] VITALS: BP 125/78
[2021-03-10 05:00] VITALS: BP 144/69
[2021-03-10] MEDS: metroNIDAZOLE 500MG/100ML 100 ML IV SCH ×2 (05:49→14:46)
[2021-03-10] MEDS: MORPHINE SULF INJ 2 MG/ML SYRINGE 1ML IV PRN ×2 (06:00→10:31)
[2021-03-10] MEDS: SUCRALFATE 1 GM/10 ML ORAL SUSP PO SCH ×2 (06:02→11:30)
[2021-03-10 06:44] LABS: Basophils # (auto) 0 10 ^3/uL (0-0.2); Basophils % (auto) 0.5 % (0.0-2.0); Eosinophils # (auto) 0.4 10 ^3/uL (0-0.8); Eosinophils % (auto) 5.5 % (0.0-7.0); Hematocrit 36.4 % (36.0-46.0); Hemoglobin 12.6 g/dL (12.2-16.2); Lymphocytes # (auto) 1.8 10 ^3/uL (0.4-5.4); Lymphocytes % (auto) 27.5 % (10.0-50.0); Mean Corpuscular Hemoglobin 30.7 pg (28.0-32.0); Mean Corpuscular Hgb Conc. 34.5 g/dL (32.0-36.0); Monocytes # (auto) 0.6 10 ^3/uL (0-1.3); Monocytes % (auto) 8.8 % (0.0-12.0); Neutrophils # (auto) 3.7 10 ^3/uL (1.6-8.6); Neutrophils % (auto) 57.7 % (37.0-80.0); Nucleated Red Blood Cells % 0.2 %; Platelet Count (auto) 245 10^3/uL (140-450); Red Blood Cells 4.09 10^6/uL (4.0-5.20); Red Cell Distribution Width 14.6 % (11.8-14.3); White Blood Cell 6.4 10^3/uL (4.4-10.8)
[2021-03-10 06:59] LABS: Potassium 3.4 mmol/L (3.5-5.1)
[2021-03-10 07:04] LABS: BUN/Creatinine Ratio 14.8; Calcium 8.9 mg/dL (8.5-10.1)
[2021-03-10] MEDS: ENSURE CLEAR Mixed Berry 8oz Carton PO SCH ×2 (08:00→12:00)
[2021-03-10 09:00] VITALS: BP 146/80
[2021-03-10] MEDS ORDERED: METR500T PO (09:57)
[2021-03-10] MEDS: PANTOPRAZOLE 40 MG TAB PO SCH (10:29)
[2021-03-10] MEDS: PARoxetine 20 MG TAB PO SCH (10:29)
[2021-03-10] MEDS: levoFLOXacin 500MG 100 ML IV SCH (10:30)
[2021-03-10 11:20] VITALS: BP 146/80
[2021-03-10 12:00] VITALS: BP 146/85
[2021-03-10] MEDS: ALBUTEROL SULF 2.5 MG/0.5ML(0.5%) NEB SOLN NEB PRN (13:33)
== END 2021-03-10 16:20 | disposition home or self-care (01) | DRG 241 ==
LOC: ER 09:25 → OVERFLOW 14:47 → CENTRAL 17:40
PROVIDERS: ADMIT Family Medicine; ATTEND Internal Medicine Pulmonary Disease
PROC: 0DB68ZX Excision of Stomach, Via Natural or Artificial Opening Endoscopic, Diagnostic (ICD-10-PCS; 2021-03-08)
PROC: 0DB48ZX Excision of Esophagogastric Junction, Via Natural or Artificial Opening Endoscopic, Diagnostic (ICD-10-PCS; 2021-03-08)
PROC: 0DB98ZX Excision of Duodenum, Via Natural or Artificial Opening Endoscopic, Diagnostic (ICD-10-PCS; principal; 2021-03-08 19:22)
DX: K29.61 Other gastritis with bleeding (principal); E11.42 Type 2 diabetes mellitus with diabetic polyneuropathy; I11.9 Hypertensive heart disease without heart failure; E66.01 Morbid (severe) obesity due to excess calories; K25.4 Chronic or unspecified gastric ulcer with hemorrhage; K57.92 Diverticulitis of intestine, part unspecified, without perforation or abscess without bleeding; E11.65 Type 2 diabetes mellitus with hyperglycemia; F20.9 Schizophrenia, unspecified; Z20.822 Contact with and (suspected) exposure to COVID-19; K21.9 Gastro-esophageal reflux disease without esophagitis; N30.01 Acute cystitis with hematuria; K44.9 Diaphragmatic hernia without obstruction or gangrene; F31.9 Bipolar disorder, unspecified; J45.909 Unspecified asthma, uncomplicated; E78.00 Pure hypercholesterolemia, unspecified; Z68.41 Body mass index [BMI] 40.0-44.9, adult; E78.5 Hyperlipidemia, unspecified; F17.210 Nicotine dependence, cigarettes, uncomplicated; Z82.49 Family history of ischemic heart disease and other diseases of the circulatory system; Z83.2 Family history of diseases of the blood and blood-forming organs and certain disorders involving the immune mechanism; Z79.899 Other long term (current) drug therapy; Z79.891 Long term (current) use of opiate analgesic; Z79.01 Long term (current) use of anticoagulants; Z83.42 Family history of familial hypercholesterolemia; Z90.49 Acquired absence of other specified parts of digestive tract
CPT/HCPCS: 36415; 71046; 74177; 80048; 80053; 81001; 82150; 82270; 82378; 83036; 83690; 83735; 84443; 85025; 85610; 85730; 87086; 87426; 93005; 94640; 96361; 96365; 96375; G0378; J0696; J1956; J2250; J2704; J3490

== ENCOUNTER 2023-05-03 11:05 | Emergency (ER) | payer OTHER ==
[~2023-05-03] VITALS: Ht 152.4 cm; Wt 100.0 kg
[~2023-05-03 11:05] MED LIST changes: +BENA20TA12 PO; -BENA20TA70 PO; +DOCU-94 PO; +DONE1TAB88 PO; +HYDR-4072 PO; +HYDR50CA2 PO; -LEVO500T31 PO; +PANT40T PO; -SIMV-8 PO; +SIMV20TA20 PO; -TRAM50TA2 PO
[2023-05-03] MEDS ORDERED: ONDANSETRON HCL 4 MG/2 ML VIAL IV ONE (11:15)
[2023-05-03] MEDS ORDERED: PANTOPRAZOLE 40 MG/10 ML VIAL INJ IV ONE (11:15)
[2023-05-03] MEDS ORDERED: MORPHINE SULFATE 4 MG/ML SYR/VIAL IV ONE (11:15)
[2023-05-03 11:51] LABS: Albumin 3.8 g/dL (3.4-5.0); Calcium 9.2 mg/dL (8.5-10.1); Magnesium 2.5 mg/dL (1.6-2.6); Potassium 4.2 mmol/L (3.5-5.1)
[2023-05-03 11:56] LABS: BUN/Creatinine Ratio 10.7 (10.0-20.0); Bilirubin, Total 0.4 mg/dL (0.2-1.0)
[2023-05-03 12:22] LABS: Urine Bacteria NONE SEEN /hpf (None Seen); Urine Blood Negative /uL (Negative); Urine Specific Gravity 1.023 (1.001-1.035); Urine WBC 30 /hpf (0 - 5)
[2023-05-03 12:24] LABS: Basophils # (auto) 0 10 ^3/uL (0-0.2); Basophils % (auto) 0.4 % (0.0-2.0); Eosinophils # (auto) 0.1 10 ^3/uL (0-0.8); Eosinophils % (auto) 1.3 % (0.0-7.0); Hemoglobin 13.2 g/dL (12.2-16.2); Lymphocytes # (auto) 2.7 10 ^3/uL (0.4-5.4); Lymphocytes % (auto) 32.4 % (10.0-50.0); Mean Corpuscular Hemoglobin 30.3 pg (28.0-32.0); Mean Corpuscular Hgb Conc. 33.1 g/dL (32.0-36.0); Mean Corpuscular Volume 91.5 fL (80.0-100.0); Monocytes # (auto) 0.6 10 ^3/uL (0-1.3); Monocytes % (auto) 7.1 % (0.0-12.0); Neutrophils # (auto) 4.9 10 ^3/uL (1.6-8.6); Neutrophils % (auto) 58.8 % (37.0-80.0); Nucleated Red Blood Cells % 0.1 %; Red Blood Cells 4.37 10^6/uL (4.0-5.20); Red Cell Distribution Width 16.2 % (11.8-14.3); White Blood Cell 8.4 10^3/uL (4.4-10.8)
[2023-05-03] MEDS ORDERED: KETOROLAC TROMETH 30 MG/ML 1ML VIAL IV ONE (12:30)
[2023-05-03] MEDS ORDERED: CIPR-173 PO (13:08)
[2023-05-03] MEDS ORDERED: ZOFR4T PO (13:08)
[2023-05-03 13:32] VITALS: BP 110/58
== END 2023-05-03 13:44 | disposition home or self-care (01) ==
LOC: ER 11:05
DX: N39.0 Urinary tract infection, site not specified (principal); F17.210 Nicotine dependence, cigarettes, uncomplicated; R07.9 Chest pain, unspecified; J45.909 Unspecified asthma, uncomplicated; E11.9 Type 2 diabetes mellitus without complications; E78.5 Hyperlipidemia, unspecified; I10 Essential (primary) hypertension
CPT/HCPCS: 36415; 71046; 74176; 80053; 81001; 83690; 83735; 84484; 85025; 93005; 96374; 96375; 99285; C9113; J1885; J2405

== ENCOUNTER 2023-05-03 14:11 | Emergency (ER) | payer OTHER ==
[~2023-05-03] VITALS: Ht 152.4 cm; Wt 100.0 kg
[~2023-05-03 14:11] MED LIST changes: +CIPR-173 PO; +ZOFR4T PO
[2023-05-03 15:13] VITALS: BP 108/53
== END 2023-05-03 15:26 | disposition home or self-care (01) ==
LOC: ER 14:11
DX: R51.9 Headache, unspecified (principal); J45.909 Unspecified asthma, uncomplicated; I10 Essential (primary) hypertension; E11.9 Type 2 diabetes mellitus without complications; E78.5 Hyperlipidemia, unspecified; F17.210 Nicotine dependence, cigarettes, uncomplicated; Z90.49 Acquired absence of other specified parts of digestive tract
CPT/HCPCS: 70450